=== PATIENT | female | born 1995 | race Caucasian/White ===

== ENCOUNTER 2016-12-05 19:03 | Emergency (ER) | payer OTHER ==
[~2016-12-05] VITALS: Ht 162.6 cm; Wt 93.0 kg
[~2016-12-05 19:03] MED LIST: IBUPROFEN800 M1 PO
--- NOTE | 2016-12-05 20:53 | ED GI/GU/ABDOMINAL COMPLAINT ---
History of Present Illness General Chief Complaint: Abdominal Pain/Flank Pain Stated Complaint: LEFT ABD/FLANK PAIN Source: patient, family, old records Exam Limitations: no limitations Vital Signs & Intake/Output Vital Signs & Intake/Output Vital Signs Date Time Temp Pulse Resp B/P Pulse O2 O2 Flow FiO2 Ox Delivery Rate 12/05 2049 Room Air 12/05 1917 97.6 71 16 124/74 100 Room Air Allergies Coded Allergies: cefprozil (From CEFZIL) (Intermediate, RASH 10/06/16) Reconcile Medications Norethindrone-E.estradiol-Iron (Lo Loestrin Fe 1-10 Tablet) (Unknown Strength) TABLET (Unknown Dose) PO DAILY CONTROL (Reported) Triage Note: PT TO TRIAGE WITH C/O LOWER ABD CRAMPING 9/10 RADIATING TO L FLANK SINCE 11AM, +NAUSEA. PT DENIES V/D, DENIES URINARY S/S. LAST BM 3PM WNL. VAGINAL DELIVERY 2MONTH AGO, DOESN'T BREASTFEED. NO OTHER COMPLAINTS. VSS. Triage Nurses Notes Reviewed? yes ? N Is pt currently ? No HPI: Patient started a new control pill this morning. Patient states that approximately 30 minutes after taking her first pill she developed pain in her left flank that radiates to her left groin. The pain is cramping in nature and is constant. There are no aggravating or mitigating factors. There is no nausea or vomiting. The pain is constant and she rates it as an 8 out of 10. There are no fevers or chills. Patient denies any dysuria or hematuria. Past History Travel History Traveled to [place] past 21 day No Medical History Any Pertinent Medical History? see below for history Neurological: NONE EENT: NONE Cardiovascular: NONE Respiratory: NONE Gastrointestinal: NONE Hepatic: NONE Renal: nephrolithiasis Musculoskeletal: NONE Psychiatric: depression, diagnosed 2012. 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 No Review of Systems Review of Systems Constitutional: Reports: no symptoms. EENTM: Reports: no symptoms. Respiratory: Reports: no symptoms. Cardiovascular: Reports: no symptoms. GI: Reports: see HPI, abdominal pain. Genitourinary: Reports: no symptoms. Musculoskeletal: Reports: see HPI, back pain. Skin: Reports: no symptoms. Neurological/Psychological: Reports: no symptoms. Hematologic/Endocrine: Reports: no symptoms. Immunologic/Allergic: Reports: no symptoms. All Other Systems: Reviewed and Negative Physical Exam Physical Exam General Appearance: well developed/nourished, alert, awake, moderate distress Head: atraumatic, normal appearance Eyes: Bilateral: PERRL, EOMI. Ears, Nose, Throat, Mouth: hearing grossly normal, moist mucous membrane Neck: normal inspection, supple Respiratory: normal breath sounds, chest non-tender, no respiratory distress, lungs clear Cardiovascular: regular rate/rhythm, normal peripheral pulses Gastrointestinal: normal bowel sounds, soft, non-tender, no organomegaly Back: CVA tenderness (L) Extremities: normal range of motion Neurologic/Psych: no motor/sensory deficits, awake, alert, oriented x 3, normal gait, normal mood/affect Skin: intact, normal color, warm/dry Core Measures ACS in differential dx? No Severe Sepsis Present: No Septic Shock Present: No Progress Differential Diagnosis: ectopic , intrauterine , kidney stone, threatened AB, UTI/pyelo Plan of Care: Orders Procedure Date/time Status URINE 12/05 1925 Complete URINALYSIS 12/05 1925 Complete Laboratory Tests 12/05/161929: Urine Color YEL, Urine Clarity HAZY H, Urine pH 7.0, Ur Specific [place] 1.020, Urine Protein TRACE H, Urine Ketones NEG, Urine Nitrite NEG, Urine Bilirubin NEG, Urine Urobilinogen 0.2, Ur Leukocyte Esterase NEG, Ur Microscopic SEDIMENT EXAMINED, Urine RBC PACKD H, Urine WBC 1-3 H, Ur Epithelial Cells MANY H, Urine Mucus FEW, Urine Hemoglobin LARGE H, Urine Glucose NEG, Urine Test NEGATIVE Diagnostic Imaging: Viewed by Me: CT Scan. Discussed w/RAD: CT Scan. Radiology Impression: PATIENT: J LUIS KEE PRESENT AGE: 21 PATIENT ACCOUNT NO: [id number] : 95 LOCATION: [facility] ORDERING PHYSICIAN: GILDA FERNANDES MD SERVICE DATE: 12/05/16 EXAM TYPE: CAT - CT ABD & PELVIS W/O IV CONTRAS EXAMINATION: CT ABDOMEN AND PELVIS WITHOUT CONTRAST CLINICAL INFORMATION: Left flank pain COMPARISON: None. TECHNIQUE: Multidetector volumetric imaging was performed from the superior aspect of the liver through the pubic symphysis. Sagittal and coronal reformatted images were obtained on the technologist's workstation. DLP: 596.2 mGy-cm. FINDINGS: LUNG BASES: The visualized lung bases are unremarkable. LIVER, GALLBLADDER, AND BILIARY TREE: The liver is normal in size, shape, and attenuation. No focal hepatic lesion or biliary ductal dilatation is present. The gallbladder is unremarkable with no evidence of radiopaque gallstones, gallbladder wall thickening, or obvious pericholecystic inflammatory changes. PANCREAS: Unremarkable. SPLEEN: Unremarkable. ADRENAL GLANDS: Unremarkable. KIDNEYS AND URETERS: A 4 x 3 mm calculus in the left proximal ureter/UPJ at the level of the L3-L4 intervertebral disc produces mild to moderate proximal hydroureteronephrosis. No perinephric or periureteral stranding. Kidneys normal in size and contour. No additional renal or ureteral calculi are identified. No focal lesions are identified. BLADDER: Unremarkable. GASTROINTESTINAL TRACT: Stomach, small bowel, and colon are normal in caliber. No bowel wall thickening. Appendix is normal. No intraperitoneal free fluid or free air. ABDOMINAL WALL: No significant hernia is appreciated. LYMPH NODES: Normal. VASCULAR: Unremarkable. PELVIC VISCERA: The uterus and adnexa are unremarkable. OSSEOUS STRUCTURES: Unremarkable. IMPRESSION: A 4 mm left proximal ureteral calculus which produces mild to moderate proximal hydroureteronephrosis. DICTATED BY: JESUS ALBERTO GREGORY MD DATE/TIME DICTATED:12/05/162127 POLICEMAN:CARLA DATE/TIME TRANSCRIBED:12/05/162127 CONFIDENTIAL, DO NOT COPY WITHOUT APPROPRIATE AUTHORIZATION. <Electronically signed in Other Vendor System> SIGNED BY: JESUS ALBERTO GREGORY MD 12/05/16 2449 Initial ED EKG: none Comments: Patient is feeling after medication here in the emergency department. Patient has been advised of the urine results as well as the CAT scan results. Questions are answered. Departure Departure Disposition: HOME OR SELF CARE Condition: Stable Clinical Impression Primary Impression: Kidney stone on left side Referrals: SAM HOYT MD PATIENT HAS NO PRIMARY CARE DR (PCP/Family) Additional Instructions: TAKE FLOMAX DAILY TAKE PERCOCET NEEDED FOR PAIN RETURN IF SYMPTOMS WORSEN OR FOR ANY COCNERNS Departure Forms: Customer Survey General Discharge Information Prescriptions: Current Visit Scripts Oxycodone HCl/Acetaminophen (Percocet 5-325 MG Tablet) 1-2 TAB PO Q6P PRN PAIN #20 TAB Tamsulosin HCl (Flomax) 1 CAP PO DAILY #14 CAP
[2016-12-05] MEDS ORDERED: LO LOESTRIN FE1 EACH PO (21:16)
--- NOTE | 2016-12-05 21:42 | CT SCAN REPORT ---
EXAMINATION: CT ABDOMEN AND PELVIS WITHOUT CONTRAST CLINICAL INFORMATION: Left flank pain COMPARISON: None. TECHNIQUE: Multidetector volumetric imaging was performed from the superior aspect of the liver through the pubic symphysis. Sagittal and coronal reformatted images were obtained on the technologist's workstation. DLP: 596.2 mGy-cm. FINDINGS: LUNG BASES: The visualized lung bases are unremarkable. LIVER, GALLBLADDER, AND BILIARY TREE: The liver is normal in size, shape, and attenuation. No focal hepatic lesion or biliary ductal dilatation is present. The gallbladder is unremarkable with no evidence of radiopaque gallstones, gallbladder wall thickening, or obvious pericholecystic inflammatory changes. PANCREAS: Unremarkable. SPLEEN: Unremarkable. ADRENAL GLANDS: Unremarkable. KIDNEYS AND URETERS: A 4 x 3 mm calculus in the left proximal ureter/UPJ at the level of the L3-L4 intervertebral disc produces mild to moderate proximal hydroureteronephrosis. No perinephric or periureteral stranding. Kidneys normal in size and contour. No additional renal or ureteral calculi are identified. No focal lesions are identified. BLADDER: Unremarkable. GASTROINTESTINAL TRACT: Stomach, small bowel, and colon are normal in caliber. No bowel wall thickening. Appendix is normal. No intraperitoneal free fluid or free air. ABDOMINAL WALL: No significant hernia is appreciated. LYMPH NODES: Normal. VASCULAR: Unremarkable. PELVIC VISCERA: The uterus and adnexa are unremarkable. OSSEOUS STRUCTURES: Unremarkable. IMPRESSION: A 4 mm left proximal ureteral calculus which produces mild to moderate proximal hydroureteronephrosis.
[2016-12-05] MEDS ORDERED: PERCOCET 5-3251 EACH PO (21:50)
[2016-12-05] MEDS ORDERED: FLOMAX0.4 M1 PO (21:50)
[2016-12-05 22:11] VITALS: BP 120/72
== END 2016-12-05 22:12 ==
LOC: ERH 19:03
DX: N20.0 Calculus of kidney (principal)
CPT/HCPCS: 74176; 81001; 81025; 96374; 96375; J1885

== ENCOUNTER 2016-12-10 05:42 | Emergency (ER) | payer OTHER ==
[~2016-12-10] VITALS: Ht 162.6 cm; Wt 94.8 kg
[~2016-12-10 05:42] MED LIST changes: +FLOMAX0.4 M1 PO; +LO LOESTRIN FE1 EACH PO; +PERCOCET 5-3251 EACH PO
[2016-12-10 05:44] VITALS: BP 126/84
--- NOTE | 2016-12-10 06:04 | ED GENERAL ADULT ---
See Addendum History of Present Illness General Chief Complaint: Abdominal Pain/Flank Pain Stated Complaint: "I HAVE A KIDNEY STONE PAIN MED NOT WORKING" HX Source: patient Exam Limitations: no limitations Vital Signs & Intake/Output Vital Signs & Intake/Output Vital Signs Date Time Temp Pulse Resp B/P Pulse O2 O2 Flow FiO2 Ox Delivery Rate 12/10 0544 97.9 70 16 126/84 98 Room Air Allergies Coded Allergies: cefprozil (From CEFZIL) (Intermediate, RASH 10/06/16) Reconcile Medications Ibuprofen 800 MG TABLET 1 TAB PO 4 TIMES/DAY PRN pain Norethindrone-E.estradiol-Iron (Lo Loestrin Fe 1-10 Tablet) (Unknown Strength) TABLET (Unknown Dose) PO DAILY CONTROL (Reported) Oxycodone HCl/Acetaminophen (Percocet 5-325 MG Tablet) 5 MG-325 MG TABLET 1 TAB PO 4XDP PRN PAIN TEN...[id number] Oxycodone HCl/Acetaminophen (Percocet 5-325 MG Tablet) 5 MG-325 MG TABLET 1-2 TAB PO Q6P PRN PAIN Tamsulosin HCl (Flomax) 0.4 MG CAP.ER.24H 1 CAP PO DAILY kidney stones Tamsulosin HCl (Flomax) 0.4 MG CAP.ER.24H 1 CAP PO DAILY KIDNEY STONE Triage Note: 21yo FEMALE TO TRIAGE W/CO L FLANK PAIN SINCE MONDAY WHEN SHE WAS SEEN HERE AN DXED KIDNEY STONE. STATES SHE IS" UNABLE TO KEEP PAIN MED DOWN" Triage Nurses Notes Reviewed? yes HPI: Patient is a 21-year-old lady who has come to the ED due to constant left sided flank pain as well as abdominal pain with nausea and vomiting. Patient was here in the ED on Monday with an colicky intermittent pain on the left flank and was found to have a kidney stone, she was given Percocet and Flomax and was discharged home. Patient reports that she has been having stomach upset with nausea and vomiting since taking Percocet, however Flomax has helped with her symptoms. Patient denies any fever or rash. denies dysuria or changes in urine color. (MIGUEL ANGEL DE LA CRUZ,VESTA) Past History Medical History Any Pertinent Medical History? see below for history Neurological: NONE EENT: NONE Cardiovascular: NONE Respiratory: NONE Gastrointestinal: NONE Hepatic: NONE Renal: nephrolithiasis Musculoskeletal: NONE Psychiatric: depression, diagnosed 2013. 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 No (VESTA MICHELLE MD) Review of Systems Review of Systems Constitutional: Denies: chills, fever. EENTM: Reports: no symptoms. Respiratory: Denies: cough, short of breath. Cardiovascular: Denies: chest pain, palpitations. GI: Reports: abdominal pain, nausea, vomiting. Denies: diarrhea. Genitourinary: Denies: dysuria, hematuria. Musculoskeletal: Reports: back pain. Skin: Reports: no symptoms. Neurological/Psychological: Reports: no symptoms. Hematologic/Endocrine: Denies: bruising, bleeding. (VESTA MICHELLE MD) Physical Exam Physical Exam General Appearance: well developed/nourished, no apparent distress, alert, awake , mild distress, obese Head: atraumatic, normal appearance Eyes: Bilateral: normal appearance, PERRL, EOMI. Ears, Nose, Throat: normal pharynx, normal ENT inspection, hearing grossly normal Neck: normal inspection, supple, full range of motion Respiratory: normal breath sounds, chest non-tender, no respiratory distress Cardiovascular: regular rate/rhythm Peripheral Pulses: 2+ radial (R), 2+ radial (L) Gastrointestinal: generalized tenderness in the abdomen, tenderness in the deep palpation of the left lower quadrant. Back: normal inspection, CVA tenderness (L) Extremities: normal inspection, normal capillary refill, normal range of motion, no edema Neurologic/Psych: no motor/sensory deficits, awake, alert, oriented x 3 Skin: stretch tate Core Measures ACS in differential dx? No CVA/TIA Diagnosis: No Severe Sepsis Present: No Septic Shock Present: No (VESTA MICHELLE MD) Progress Differential Diagnoses I considered the following diagnoses in my evaluation of the patient: [renal colic, adverse reaction to percocet, rule out , rule out UTI] Initial ED EKG: none (VESTA MICHELLE MD) Differential Diagnoses I considered the following diagnoses in my evaluation of the patient: Plan of Care: Orders Procedure Date/time Status URINALYSIS 12/10 555 Active LIPASE 12/10 555 Complete HEPATIC FUNCTION PANEL 12/10 555 Complete HUMAN BETA HCG SCREEN 12/10 555 Complete CBC WITHOUT DIFFERENTIAL 12/10 555 Complete BASIC METABOLIC PANEL 12/10 555 Complete AMYLASE 12/10 555 Complete Laboratory Tests 12/10/16 0556: Anion Gap 11, Estimated GFR > 60, BUN/Creatinine Ratio 15.0, Glucose 104 H, Calcium 9.5, Total Bilirubin 0.5, Direct Bilirubin 0.3, AST 18, ALT 39, Alkaline Phosphatase 90, Total Protein 7.2, Albumin 4.2, Amylase 37, Lipase 76, Total Beta HCG NEGATIVE, CBC w Diff MAN DIFF ORDERED, RBC 4.23, MCV 79.3 L, MCH 26.0 L, RDW 14.7 H, MPV 7.4, Gran % 89.4 H, Lymphocytes % 7.3 L, Monocytes % 3.3, Eosinophils % 0, Basophils % 0 L, Absolute Granulocytes 11.4 H, Absolute Lymphocytes 0.9 L, Absolute Monocytes 0.4, Absolute Eosinophils 0, Absolute Basophils 0, Platelet Estimate ADEQUATE, Polychromasia 1+, Anisocytosis 1+, Microcytic Cells 1+, PUBS MCHC 32.8 L Diagnostic Imaging: Viewed by Me: CT Scan. Discussed w/RAD: CT Scan. Radiology Impression: abd/pelvic ct... left 4x3mm kidney stone. full report below. Hand-Off Endorsed To: REJI TEIXEIRA MD Endorsed Time: 0700 Pending: labs Comments: PATIENT: J LUIS KEE PRESENT AGE: 21 PATIENT ACCOUNT NO: [id number] : 95 LOCATION: [facility] ORDERING PHYSICIAN: GILDA FERNANDES MD SERVICE DATE: 12/05/16 EXAM TYPE: CAT - CT ABD & PELVIS W/O IV CONTRAS EXAMINATION: CT ABDOMEN AND PELVIS WITHOUT CONTRAST CLINICAL INFORMATION: Left flank pain COMPARISON: None. TECHNIQUE: Multidetector volumetric imaging was performed from the superior aspect of the liver through the pubic symphysis. Sagittal and coronal reformatted images were obtained on the technologist's workstation. DLP: 596.2 mGy-cm. FINDINGS: LUNG BASES: The visualized lung bases are unremarkable. LIVER, GALLBLADDER, AND BILIARY TREE: The liver is normal in size, shape, and attenuation. No focal hepatic lesion or biliary ductal dilatation is present. The gallbladder is unremarkable with no evidence of radiopaque gallstones, gallbladder wall thickening, or obvious pericholecystic inflammatory changes. PANCREAS: Unremarkable. SPLEEN: Unremarkable. ADRENAL GLANDS: Unremarkable. KIDNEYS AND URETERS: A 4 x 3 mm calculus in the left proximal ureter/UPJ at the level of the L3-L4 intervertebral disc produces mild to moderate proximal hydroureteronephrosis. No perinephric or periureteral stranding. Kidneys normal in size and contour. No additional renal or ureteral calculi are identified. No focal lesions are identified. BLADDER: Unremarkable. GASTROINTESTINAL TRACT: Stomach, small bowel, and colon are normal in caliber. No bowel wall thickening. Appendix is normal. No intraperitoneal free fluid or free air. ABDOMINAL WALL: No significant hernia is appreciated. LYMPH NODES: Normal. VASCULAR: Unremarkable. PELVIC VISCERA: The uterus and adnexa are unremarkable. OSSEOUS STRUCTURES: Unremarkable. IMPRESSION: A 4 mm left proximal ureteral calculus which produces mild to moderate proximal hydroureteronephrosis. DICTATED BY: JESUS ALBERTO GREGORY MD DATE/TIME DICTATED:12/05/162127 MEDIA ANALYST:CARLA DATE/TIME TRANSCRIBED:12/05/162127 CONFIDENTIAL, DO NOT COPY WITHOUT APPROPRIATE AUTHORIZATION. <Electronically signed in Other Vendor System> SIGNED BY: JESUS ALBERTO GREGORY MD 12/05/162141 (JF DE LA CRUZ,FIFI Houser) Departure Departure Time of Disposition: 06 Disposition: HOME OR SELF CARE Condition: Stable Clinical Impression Primary Impression: Kidney stone on left side Referrals: [facility] ZULEMA SPRAGUE MD Additional Instructions: Please follow up with Urology, Dr. Sprague, after discharge. Departure Forms: Customer Survey General Discharge Information Prescriptions: Current Visit Scripts Ibuprofen 1 TAB PO 4 TIMES/DAY PRN pain #60 TAB Ref 1 Oxycodone HCl/Acetaminophen (Percocet 5-325 MG Tablet) 1 TAB PO 4XDP PRN PAIN #10 TAB TEN...[id number] Tamsulosin HCl (Flomax) 1 CAP PO DAILY #10 CAP (MIGUEL ANGEL DE LA CRUZ,[facility]) Resident Co-Sign Statement Statement: ED Attending supervision documentation- [x] I saw and evaluated the patient. I have also reviewed all the pertinent lab results and diagnostic results. I agree with the findings and the plan of care as documented in the Resident's documentation. pt with symptoms of left sided renal colic, minimal abd tenderness, most consistent with renal colic. CT scan from 5 days ago reveals 4x3mm left sided kidney stones at left uvj. pt to receive supportive medications and will follow up with dr. sprague (urology). [] I have reviewed the ED Record and agree with the Resident's documentation. [] Additions or exceptions (if any) to the Resident's note and plan are summarized below: [] (JF DE LA CRUZ,FIFI Houser) Critical Care Note Critical Care Note Critical Care Time: non-applicable (VESTA MICHELLE MD) ED Attending Observation Initial Observation Note: I have seen and personally examined J LUIS KEE on 12/10/16 at 0652. I agree with the current emergency department documentation. The disposition (admission or discharge) is uncertain at this time, she needs a period of observation for the following reason(s): The ED Nurse caring for this patient has been personally informed as to what the patient is being observed for. (VESTA MICHELLE MD) (VESTA MICHELLE MD)
[2016-12-10 06:30] LABS: ABSOLUTE BASOPHIL COUNT 0 /CUMM (0.0-0.2); ABSOLUTE EOSINOPHIL COUNT 0 /CUMM (0.0-0.7); ABSOLUTE GRANULOCYTE CT 11.4 /CUMM (1.4-6.5); ABSOLUTE LYMPH COUNT 0.9 /CUMM (1.2-3.4); ABSOLUTE MONOCYTE COUNT 0.4 /CUMM (0.10-0.60); BASOPHIL % 0 % (0.0-2.0); EOSINOPHIL % 0 % (0-5); GRANULOCYTE % 89.4 % (42.2-75.2); HEMATOCRIT 33.5 % (37-47); MEAN CORPUSCULAR HGB CONC 32.8 G/DL (33.0-37.0); MEAN CORPUSCULAR VOLUME 79.3 FL (81.0-99.0); MEAN PLATELET VOLUME 7.4 FL (7.4-10.4); PLATELET COUNT 363 /CUMM (130-400); RBC DISTRIBUTION WIDTH 14.7 % (11.5-14.5); RED BLOOD CELL CT 4.23 /CUMM (4.20-5.40); WHITE BLOOD CELL COUNT 12.7 /CUMM (4.8-10.8)
[2016-12-10] MEDS ORDERED: PERCOCET 5-3251 EACH PO (06:36)
[2016-12-10] MEDS ORDERED: IBUPROFEN800 M1 PO (06:36)
[2016-12-10] MEDS ORDERED: FLOMAX0.4 M1 PO (06:36)
[2016-12-10] MEDS ORDERED: BACTRIM DS TAB1 EACH PO (08:49)
== END 2016-12-10 09:26 ==
LOC: ERH 05:42
PROVIDERS: Pediatrics
DX: N20.0 Calculus of kidney (principal); N39.0 Urinary tract infection, site not specified
CPT/HCPCS: 81001; 96361; 96374; 96375; J1885; J2405